=== PATIENT | male | born 1955 | race Caucasian/White ===

== ENCOUNTER 2020-07-16 16:58 | Inpatient (IN) ==
[2020-07-16] MEDS ORDERED: Nystatin Ointment 15 GM TUBE TP STA (18:18)
[2020-07-16] MEDS ORDERED: MVI, adult with vitamin K 10 ML in 0.9 % Sodium Chloride 1,000 ML IVC ONE (18:21)
[2020-07-16] MEDS ORDERED: Folic Acid 1 MG in 0.9 % Sodium Chloride 50 ML IVPB ONE (18:21)
[2020-07-16] MEDS ORDERED: Thiamine (B-1) 200 MG in 0.9 % Sodium Chloride 50 ML IVPB ONE (18:21)
[2020-07-16] MEDS ORDERED: 0.9 % Sodium Chloride 500 ML IVC ONE (18:21)
[2020-07-16] MEDS ORDERED: Multivit/Ca/Min/Fe/FA 1 TAB TABLET PO ONE (18:30)
[2020-07-16 18:45] LABS: Hematocrit 43.3 % (37.5-50.1); Hemoglobin 15.4 g/dL (12.9-16.9); Mean Corpuscular HGB Conc 35.6 g/dL (31.6-35.5); Mean Corpuscular Volume 92.7 fL (83.0-100.0); Mean Platelet Volume 8.4 fL (9.4-12.4); Platelet Count 235 K/mcL (140-400); Red Blood Count 4.67 M/mcL (4.19-5.50); Red Cell Distribution Width 12.3 % (11.5-14.5); White Blood Count 12.3 K/mcL (4.3-11.1)
[2020-07-16 19:02] LABS: BUN/Creatinine Ratio 9 (6-26); Blood Urea Nitrogen 5 mg/dL (8-23); Calcium 8.9 mg/dL (8.6-10.3); Carbon Dioxide 24 mEq/L (23-29); Chloride 88 mEq/L (98-107); Creatine Kinase 109 Units/L (30-223); Glucose 90 mg/dL (70-105); Osmolality,Calculated 257 (280-300); Sodium 125 mEq/L (136-145); eGFR For African Americans > 60 (> 60); eGFR For Non-African Americans > 60 (> 60)
[2020-07-16] MEDS ORDERED: Ondansetron ODT 4 MG TAB.RAPDIS SL PRN (20:01)
[2020-07-16] MEDS ORDERED: Naloxone 0.4 MG/ML INJ IVP PRN (20:01)
[2020-07-16] MEDS ORDERED: *HR* LORazepam 2 MG/ML VIAL IVP PRN ×2 (20:04)
[2020-07-16 20:05] LABS: Ethanol 153 mg/dL (Less than 10)
[2020-07-16] MEDS ORDERED: 0.9 % Sodium Chloride 1,000 ML IVC SCH (20:15)
[2020-07-16] MEDS ORDERED: 0.9 % Sodium Chloride 1,000 ML IVC ONE (21:36)
[2020-07-16] MEDS ORDERED: Ipratropium/Albuterol Neb 3 ML IH PRN (21:37)
[2020-07-16] MEDS ORDERED: Nicotine 14 MG PATCH.TD24 TD SCH (23:30)
[2020-07-17] MEDS ORDERED: 0.9 % Sodium Chloride 1,000 ML IVC SCH (00:15)
[2020-07-17] MEDS: *HR* Metoprolol 5 MG/5 ML VIAL IVP SCH ×3 (00:31→12:16)
[2020-07-17] MEDS: Nicotine 2 MG GUM BC PRN ×4 (00:31→21:06)
[2020-07-17 01:08] LABS: Basophils % 0.4 %; Eosinophils % 0.1 %; Hematocrit 37.6 % (37.5-50.1); Immature Granulocytes % 0.4 % (0-4); Lymphocytes # 0.4 K/mcL (0.6-4.6); Lymphocytes % 4.4 %; Mean Corpuscular HGB Conc 35.1 g/dL (31.6-35.5); Mean Corpuscular Hemoglobin 32.3 pg (28.0-33.3); Mean Corpuscular Volume 91.9 fL (83.0-100.0); Mean Platelet Volume 8.4 fL (9.4-12.4); Monocytes # 1.1 K/mcL (0.0-1.3); Monocytes % 12.9 %; Neutrophils # 6.6 K/mcL (1.6-8.9); Platelet Count 203 K/mcL (140-400); Red Blood Count 4.09 M/mcL (4.19-5.50); Red Cell Distribution Width 12.3 % (11.5-14.5); Segmented Neutrophils % 81.8 %; White Blood Count 8.1 K/mcL (4.3-11.1)
[2020-07-17 01:10] LABS: Hemoglobin 13.2 g/dL (12.9-16.9)
[2020-07-17 01:54] LABS: Alanine Aminotransferase 12 Units/L (7-52); Albumin 3.2 g/dL (3.5-5.7); Albumin/Globulin Ratio 1.2 (1.1-2.2); Alkaline Phosphatase 114 Units/L (34-104); Aspartate Amino Transferase 24 Units/L (13-39); BUN/Creatinine Ratio 13 (6-26); Bilirubin,Total 0.8 mg/dL (0.3-1.0); Blood Urea Nitrogen 7 mg/dL (8-23); Calcium 8.1 mg/dL (8.6-10.3); Carbon Dioxide 26 mEq/L (23-29); Chloride 100 mEq/L (98-107); Chol/HDL Ratio 1.5 (0-4.9); Cholesterol 145 mg/dL (< 200); Globulin 2.6 g/dL (2.4-3.5); Glucose 202 mg/dL (70-105); HDL Cholesterol 99 mg/dL (40-59); LDL Cholesterol,Calculated 37 mg/dL (< 100); Magnesium 1.6 mg/dL (1.6-2.6); Osmolality,Calculated 280 (280-300); Phosphorous 2.6 mg/dL (2.7-4.5); Potassium 3.4 mEq/L (3.5-5.1); Sodium 133 mEq/L (136-145); Total Protein 5.8 g/dL (6.4-8.9); Triglycerides 47 mg/dL (< 150); eGFR For African Americans > 60 (> 60); eGFR For Non-African Americans > 60 (> 60)
[2020-07-17 02:50] LABS: Bacteria,Urine Few per hpf (None-Few); Bilirubin,Urine Negative (Negative); Blood,Urine Trace (Negative); Clarity,Urine Clear (Clear); Color,Urine Light-Yellow (Yellow); Glucose,Urine (UA) 100 mg/dL (Normal); Ketones,Urine Negative (Negative); Leukocyte Esterase,Urine Negative (Negative); Nitrite,Urine Positive (Negative); Protein,Urine Negative (Neg-Trace); RBC,Urine 0-3 per hpf (0-3); Specific Gravity,Urine 1.006 (1.010-1.025); Urobilinogen,Urine Normal (Normal); WBC,Urine 0-3 per hpf (0-3)
[2020-07-17 03:10] LABS: Potassium,Urine 14.6 mEq/L; Sodium, Urine 56.8 mEq/L
[2020-07-17 03:19] LABS: Amphetamine Screen,Urine Negative ng/mL (Cutoff=1000); Barbiturate Screen,Urine Negative ng/mL (Cutoff=200); Benzodiazepines Screen,Urine Negative ng/mL (Cutoff=200); Cannabinoid Screen,Urine Negative ng/mL (Cutoff = 50); Cocaine Screen,Urine Negative ng/mL (Cutoff= 300); Opiate Screen,Urine Negative ng/mL (Cutoff=300); Phencyclidine Screen,Urine Negative ng/mL (Cutoff=25)
[2020-07-17] MEDS: Nystatin Ointment 15 GM TUBE TP SCH ×4 (08:28→21:01)
[2020-07-17] MEDS ORDERED: lisinopriL 10 MG TABLET PO SCH (11:15)
[2020-07-17] MEDS: cefTRIAXone 1,000 MG in Water for inj. (sterile) 10 ML IVP SCH (12:15)
[2020-07-17] MEDS: lisinopriL 5 MG TABLET PO SCH (12:23)
[2020-07-17] MEDS: Acetaminophen 325 MG TABLET PO PRN ×2 (12:24→21:11)
[2020-07-17 17:34] LABS: Hematocrit 41.2 % (37.5-50.1); Hemoglobin 14.2 g/dL (12.9-16.9)
[2020-07-18 04:03] LABS: Hematocrit 39.9 % (37.5-50.1); Mean Corpuscular HGB Conc 35.1 g/dL (31.6-35.5); Mean Corpuscular Volume 94.1 fL (83.0-100.0); Mean Platelet Volume 8.7 fL (9.4-12.4); Platelet Count 220 K/mcL (140-400); Red Blood Count 4.24 M/mcL (4.19-5.50); Red Cell Distribution Width 12.3 % (11.5-14.5); White Blood Count 7.9 K/mcL (4.3-11.1)
[2020-07-18 04:24] LABS: BUN/Creatinine Ratio 25 (6-26); Blood Urea Nitrogen 14 mg/dL (8-23); Calcium 8.8 mg/dL (8.6-10.3); Carbon Dioxide 29 mEq/L (23-29); Chloride 93 mEq/L (98-107); Glucose 98 mg/dL (70-105); Osmolality,Calculated 272 (280-300); Phosphorous 3.5 mg/dL (2.7-4.5); Sodium 131 mEq/L (136-145); eGFR For African Americans > 60 (> 60); eGFR For Non-African Americans > 60 (> 60)
[2020-07-18] MEDS: Folic Acid 1 MG TABLET PO SCH (08:39)
[2020-07-18] MEDS: Nystatin Ointment 15 GM TUBE TP SCH ×4 (08:39→21:25)
[2020-07-18] MEDS: Thiamine (B-1) 100 MG TABLET PO SCH (08:39)
[2020-07-18] MEDS: lisinopriL 5 MG TABLET PO SCH (08:39)
[2020-07-18] MEDS: cefTRIAXone 1,000 MG in Water for inj. (sterile) 10 ML IVP SCH (08:41)
[2020-07-18] MEDS: Acetaminophen 325 MG TABLET PO PRN (08:52)
[2020-07-18] MEDS: Nicotine 2 MG GUM BC PRN (08:52)
[2020-07-18] MEDS: lisinopriL 10 MG TABLET PO SCH (14:03)
[2020-07-19 03:57] LABS: Alanine Aminotransferase 22 Units/L (7-52); Albumin 3.4 g/dL (3.5-5.7); Albumin/Globulin Ratio 1.2 (1.1-2.2); Alkaline Phosphatase 102 Units/L (34-104); Aspartate Amino Transferase 37 Units/L (13-39); BUN/Creatinine Ratio 23 (6-26); Bilirubin,Total 0.4 mg/dL (0.3-1.0); Blood Urea Nitrogen 12 mg/dL (8-23); Carbon Dioxide 24 mEq/L (23-29); Chloride 98 mEq/L (98-107); Globulin 2.9 g/dL (2.4-3.5); Glucose 111 mg/dL (70-105); Osmolality,Calculated 274 (280-300); Potassium 3.6 mEq/L (3.5-5.1); Sodium 132 mEq/L (136-145); Total Protein 6.3 g/dL (6.4-8.9); eGFR For African Americans > 60 (> 60); eGFR For Non-African Americans > 60 (> 60)
[2020-07-19 09:17] LABS: Adenovirus Not Detected (Not Detect); Bordetella Pertussis Not Detected (Not Detect); Chlamydophila pneumoniae Not Detected (Not Detect); Coronavirus 229E Not Detected (Not Detect); Coronavirus HKU1 Not Detected (Not Detect); Coronavirus NL63 Not Detected (Not Detect); Coronavirus OC43 Not Detected (Not Detect); Human Metapneumovirus Not Detected (Not Detect); Human Rhinovirus/Enterovirus Not Detected (Not Detect); Influenza A Subtype 2009 H1 Not Detected (Not Detect); Influenza B Not Detected (Not Detect); Mycoplasma pneumoniae Not Detected (Not Detect); Parainfluenza Virus 1 Not Detected (Not Detect); Parainfluenza Virus 2 Not Detected (Not Detect); Parainfluenza Virus 3 Not Detected (Not Detect); Parainfluenza Virus 4 Not Detected (Not Detect); Respiratory Syncytial Virus Not Detected (Not Detect); SARS-CoV-2 Not Detected (Not Detect)
[2020-07-19] MEDS: cefTRIAXone 1,000 MG in Water for inj. (sterile) 10 ML IVP SCH (10:28)
[2020-07-19] MEDS: Thiamine (B-1) 100 MG TABLET PO SCH (10:28)
[2020-07-19] MEDS: Folic Acid 1 MG TABLET PO SCH (10:28)
[2020-07-19] MEDS: lisinopriL 10 MG TABLET PO SCH (10:28)
[2020-07-19] MEDS: Nystatin Ointment 15 GM TUBE TP SCH ×2 (10:32→13:14)
[2020-07-19] MEDS: Acetaminophen 325 MG TABLET PO PRN ×2 (10:35→20:03)
[2020-07-19] MEDS: Nicotine 2 MG GUM BC PRN ×3 (10:35→23:49)
[2020-07-20 06:39] LABS: Alanine Aminotransferase 18 Units/L (7-52); Albumin 3.5 g/dL (3.5-5.7); Albumin/Globulin Ratio 1.3 (1.1-2.2); Alkaline Phosphatase 97 Units/L (34-104); Aspartate Amino Transferase 25 Units/L (13-39); BUN/Creatinine Ratio 22 (6-26); Bilirubin,Total 0.4 mg/dL (0.3-1.0); Blood Urea Nitrogen 14 mg/dL (8-23); Calcium 8.6 mg/dL (8.6-10.3); Carbon Dioxide 26 mEq/L (23-29); Chloride 96 mEq/L (98-107); Globulin 2.6 g/dL (2.4-3.5); Glucose 107 mg/dL (70-105); Osmolality,Calculated 271 (280-300); Potassium 3.8 mEq/L (3.5-5.1); Sodium 130 mEq/L (136-145); Total Protein 6.1 g/dL (6.4-8.9); eGFR For African Americans > 60 (> 60); eGFR For Non-African Americans > 60 (> 60)
[2020-07-20] MEDS: lisinopriL 10 MG TABLET PO SCH (08:50)
[2020-07-20] MEDS: Folic Acid 1 MG TABLET PO SCH (08:50)
[2020-07-20] MEDS: cefTRIAXone 1,000 MG in Water for inj. (sterile) 10 ML IVP SCH (08:50)
[2020-07-20] MEDS: Thiamine (B-1) 100 MG TABLET PO SCH (08:50)
[2020-07-20] MEDS: Acetaminophen 325 MG TABLET PO PRN (08:59)
[2020-07-20] MEDS: Nicotine 2 MG GUM BC PRN ×2 (08:59→13:04)
[2020-07-20 10:55] VITALS: BP 168/99
[2020-07-21] MEDS ORDERED: lisinopriL 10 MG TABLET PO ONE (11:49)
== END 2020-07-20 14:36 | DRG 897 ==
LOC: EMEROOARM 16:58 → 3BNU 16:58 → SUATTDRO 19:51 → 3BNU 20:31 → SUATTDRO 07-17 15:27
PROVIDERS: ADMIT Student in an Organized Health Care Education/Training Program; ATTEND Registered Nurse